=== PATIENT | female | born 1970 | race Caucasian/White ===

== ENCOUNTER 2017-08-26 21:20 | Emergency (ER) | payer OTHER ==
--- NOTE | 2017-08-26 22:00 | ER Document Report ---
ED General - General Mode of Arrival: Ambulatory Information source: Patient TRAVEL OUTSIDE OF THE [place] IN LAST 30 DAYS: No - General Chief Complaint: Toothache Stated Complaint: TOOTHACHE Notes: 46 y.o female presents to the ED with a toothache to three LT lower teeth of onset three days ago. She reports that there is an infection to her bridge and the three teeth in that area. Pt denies any occasion to associate her pain with. Pt denies any other medical issues. Pt reports that she tried to see her dentist but was unable to get an appointment due to the holiday. (ALEXANDREA MOJICA) - Related Data Allergies/Adverse Reactions: No Known Allergies Allergy (Verified 07/22/12 19:43) Past Medical History - General Information source: Patient - Social History Smoking Status: Unknown if Ever Smoked Chew tobacco use (# tins/day): No Frequency of alcohol use: Occasional Drug Abuse: None Family History: Reviewed & Not Pertinent Patient has suicidal ideation: No Patient has homicidal ideation: No Renal/ Medical History: Denies: Hx Peritoneal Dialysis - Immunizations Hx Diphtheria, Pertussis, Tetanus Vaccination: Yes Review of Systems - Review of Systems Constitutional: No symptoms reported EENT: See HPI, Other - Tooth pain Cardiovascular: No symptoms reported Respiratory: No symptoms reported Gastrointestinal: No symptoms reported Genitourinary: No symptoms reported Female Genitourinary: No symptoms reported Musculoskeletal: No symptoms reported Skin: No symptoms reported Hematologic/Lymphatic: No symptoms reported Neurological/Psychological: No symptoms reported -: Yes All other systems reviewed and negative Physical Exam - Vital signs Vitals: Temp Pulse Resp BP Pulse Ox 98.9 F 123 H 18 129/84 H 99 08/26/17 21:36 08/26/17 21:36 08/26/17 21:36 08/26/17 21:36 08/26/17 21:36 - Notes Notes: Physical Exam: General: Alert, appears well. HEENT: Normocephalic. Atraumatic. PERRL. Extraocular movements intact. Oropharynx clear. No apical abscess. No swollen lymph nodes. The 2nd bicuspid with a bridge has some discoloration under the crown. Neck: Supple. Non-tender. Respiratory: No respiratory distress. Clear and equal breath sounds bilaterally. Cardiovascular: Regular rate and rhythm. Abdominal: Normal Inspection. Non-tender. No distension. Normal Bowel Sounds. Back: Non-tender. No deformity or step off. Extremities: Moves all four extremities. Upper extremities: Normal inspection. Normal ROM. Lower extremities: Normal inspection. No edema. Normal ROM. Neurological: Normal cognition. AAOx3. Normal speech. Psychological: Flat affect. Normal Mood. Skin: Warm. Dry. Normal color. (ALEXANDREA MOJICA) Course - Re-evaluation Re-evalutation: 08/26/17 22:05 Patient well-appearing in no acute distress at bedside. Vitals found that she was tachycardic with initial vitals taken from triage. Manual palpation of radial pulse reveals pulse rate of 96 by me. Patient has no evidence of infection at this time no lymphadenopathy no fevers or chills. Patient states she is trying to get to see her dentist tomorrow for evaluation. Will provide [id number] antibiotic prescription in the event she has worsening symptoms or begins having any swollen lymph nodes or fever she is to start taking the medication until she is seen by her dentist. Return precautions provided. (LUKE PALACIOS) - Vital Signs Vital signs: Temp Pulse Resp BP Pulse Ox 98.8 F 103 H 18 131/83 H 98 08/26/17 22:18 08/26/17 22:18 08/26/17 22:18 08/26/17 22:18 08/26/17 22:18 Discharge - Discharge Clinical Impression: Pain, dental Condition: Good Disposition: HOME, SELF-CARE Instructions: Penicillin V K ([facility]), Toothache ([facility]) Additional Instructions: You have been provided an antibiotic. Please have it filled if you have worsening symptoms. Per discussion, please see your dentist this week for evaluation. Prescriptions: Diclofenac Sodium 50 mg PO TID PRN #15 tablet.dr SHAH Reason: Penicillin V Potassium [Penicillin Vk 500 mg Tablet] 500 mg PO QID 10 Days #40 tablet Referrals: [facility] [Primary Care Provider] - Follow up as needed Scribe Attestation: 08/27/17 01:40 I personally performed the services described documentation, reviewed and edited the documentation which was dictated to describe my presence, and it accurately records my words and actions. (LUKE PALACIOS) Scribe Documentation - Scribe Written by Bipinibe:: Oscar Lama 7/07/09 2200 acting as scribe for :: Wilmer
[2017-08-26] MEDS ORDERED: KETOROLAC TROMETHAMINE 60 MG/2 ML SDV IM ONE (22:09)
[2017-08-26 22:22] VITALS: BP 131/83
== END 2017-08-26 22:21 | disposition home or self-care (01) ==
LOC: ER 21:20
DX: K08.89 Other specified disorders of teeth and supporting structures (principal); R00.0 Tachycardia, unspecified
CPT/HCPCS: 99282; 96372; J1885

== ENCOUNTER → 2017-10-04 | Outpatient (CLI) | payer OTHER ==
--- NOTE | 2017-10-04 17:25 | RADIOLOGY REPORT (SQ) ---
EXAM DESCRIPTION: U/S THYROID/SFT TISS HD NECK COMPLETED DATE/TIME: 10/04/2017 4:56 pm REASON FOR STUDY: R94.6 ABNORMAL RESULTS OF THYROID FUNCTION STUDIES R94.6 ABNORMAL RESULTS OF THYR OID FUNCTION STUDIES COMPARISON: None. TECHNIQUE: Dynamic and static donovan-scale images acquired of the thyroid gland. Selected additional c olor/power Doppler images recorded. All images stored to PACS. LIMITATIONS: None. FINDINGS: RIGHT LOBE: Normal size, 2.6 x 1.3 x 1.3 cm. Homogeneous echotexture. No masses. LEFT LOBE: Normal size, 3.3 x 1.3 x 1.8 cm. Homogeneous echotexture. There is a 3 x 2 x 3 mm hypoec hoic nodule in the superior pole of the left lobe. ISTHMUS: Normal size, 3 mm. Homogeneous echotexture. No cystic or solid masses. OTHER: No other significant finding. IMPRESSION: Normal size gland. There is a small hypoechoic nodule in the upper pole of the left lob e. Recommend follow-up ultrasound in 1 year. TECHNICAL DOCUMENTATION: JOB ID: [id number] [employer]- All Rights Reserved Reading location - IP/workstation name: [email or web address]
== END ==
LOC: RAD 17:37
PROVIDERS: ATTEND Nurse Practitioner Primary Care
DX: R94.6 Abnormal results of thyroid function studies (principal)
CPT/HCPCS: 76536